=== PATIENT | female | born 1995 | race Hispanic/Latino ===

== ENCOUNTER 2018-01-25 11:52 | Outpatient (CLI) | payer BC ==
--- NOTE | 2018-01-25 12:18 | RAD ---
3 VIEWS RIGHT FOOT: Date: 01/25/18 INDICATION: Right foot pain. COMPARISON: None. FINDINGS: No definite acute fracture or subluxation is evident. Lisfranc alignment is preserved. There is heale d instrumented distal fibular fracture. IMPRESSION: No definite acute osseous abnormality. POS: [facility]
== END 2018-01-25 11:53 | disposition home or self-care (01) ==
LOC: BICRAD 11:52
PROVIDERS: ATTEND Family Medicine
DX: M79.671 Pain in right foot (principal)

== ENCOUNTER 2019-08-20 00:48 | Inpatient (IN) | payer BC, OTHER ==
[2019-08-20] MEDS ORDERED: Ondansetron ODT 4 MG TAB ONE (01:20)
[2019-08-20 02:09] LABS: #Lymphocytes 1.2 thou/uL (1.20-3.40); #Monocytes 0.3 thou/uL (0.11-0.59); #Neutrophils 13.7 thou/uL (1.40-6.50); %Basophils 0.1 % (0.0-1.0); %Lymphocytes 7.9 % (21.0-51.0); %Monocytes 1.9 % (0.0-10.0); Hemoglobin 13.2 g/dL (12.0-16.0); Mean Corpuscular Hemoglobin 27.7 pg (27.0-31.0); Mean Platelet Volume 9.5 fL (7.4-10.4); Platelet Count 220 thou/uL (130-400); Red Blood Cell (RBC) Count 4.77 mill/uL (4.20-5.40); White Blood Cell (WBC) Count 15.2 thou/uL (4.8-10.8)
[2019-08-20 02:14] LABS: BHCG - Serum Negative (NEGATIVE); Pregs Control Background? CLEAR/WHITE (CLR/WHITE); Pregs Control Bar Appear? YES (CONTROL BAR)
[2019-08-20 02:29] LABS: ALT (SGPT) 21 U/L (8-55); AST (SGOT) 20 U/L (5-34); Albumin 4.4 g/dL (3.5-5.0); Alkaline Phosphatase 97 U/L (40-110); Anion Gap 14 mmol/L (10-20); BUN (Urea Nitrogen) 8 mg/dL (7.0-18.7); Bilirubin, Total 0.2 mg/dL (0.2-1.2); Calc. Creatinine Clearance 0 mL/min (70-130); Calcium 9.1 mg/dL (7.8-10.44); Carbon Dioxide 21 mmol/L (22-29); Chloride 107 mmol/L (98-107); Estimated GFR-MDRD Greater than 90; Globulin 3.5 g/dL (2.4-3.5); Glucose 133 mg/dL (70-105); Lipase 8 U/L (8-78); Potassium 3.6 mmol/L (3.5-5.1); Protein, Total 7.9 g/dL (6.0-8.3); Sodium 138 mmol/L (136-145)
[2019-08-20 02:46] LABS: Bacteria/HPF None Seen HPF (None Seen); Bilirubin Negative (Negative); Blood, Urine 3+ (Negative); Clarity Extra Turbid (Clear); Glucose, Urine (Dipstick) Normal (Negative); Leukocyte Negative Leu/uL (Negative); Mucous/LPF 2+ LPF (<2+); Nitrite Negative (Negative); Protein, Urine (Dipstick) 70 mg/dL (Neg-Trace); RBC/HPF Greater than 50 HPF (0-3); Urobilinogen Normal mg/dL (Less than 2); WBC/HPF 21-50 HPF (0-3)
[2019-08-20] MEDS ORDERED: Morphine 4 MG/ML VIAL ONE (03:23)
[2019-08-20] MEDS ORDERED: Ondansetron PF 4 MG/2 ML Vial ONE (03:23)
[2019-08-20] MEDS ORDERED: Piperacillin/Tazobactam 3.375 GM VIAL ONE (04:08)
[2019-08-20 05:53] VITALS: BMI 32.9
[2019-08-20] MEDS ORDERED: Morphine 4 MG/ML VIAL SLOW IVP PRN (05:54)
[2019-08-20] MEDS: Morphine 2 MG/ML SYRINGE SLOW IVP PRN ×2 (06:12→09:22)
[2019-08-20] MEDS: Dextrose 5 % And 0.9 % NaCl 1,000 ML IV SCH ×2 (06:12→15:02)
--- NOTE | 2019-08-20 08:09 | CT ---
PRELIMINARY REPORT/[facility]/EMERGENCY AFTER HOURS PROCEDURE This report was discussed with MATTHEW Villagran by Carla Lu on Aug 20, 2019 03:49:00 CDT. Addendum electronically signed by Carla Lu on August 20, 2019 3:50:07 AM CDT EXAM: CT Abdomen and Pelvis with Intravenous Contrast CLINICAL HISTORY: PT PRESENTS TO ER WITH COMPLAINT OF ABD PAIN, VOMITING AND POSITIVE FOR COVID TECHNIQUE: Axial computed tomography images of the abdomen and pelvis with intravenous contrast. CONTRAST: With; ISOVUE 370, 090 ML COMPARISON: None provided. FINDINGS: LUNG BASES: No basilar airspace consolidation or pleural effusion. 8 mm groundglass nodule at the right lung bas e which is nonspecific. LIVER: Unremarkable. GALLBLADDER AND BILE DUCTS: Unremarkable. No calcified stone. No ductal dilation. PANCREAS: Unremarkable. SPLEEN: Unremarkable. ADRENAL GLANDS: Unremarkable. KIDNEYS, URETERS, AND BLADDER: Unremarkable. No hydronephrosis or nephrolithiasis. No ureteral or bladder calculi. STOMACH AND BOWEL: The colon is diffusely underdistended. No bowel obstruction. APPENDIX: The appendix is fluid-filled and diffusely dilated measuring up to 1.4 cm. There is a focus of gas at the base of the appendix. The distal appendix is mildly heterogeneous with internal hyperdensity. There are no significant periappendiceal inflammatory changes. PERITONEUM: No free fluid. No free air. LYMPH NODES: No lymphadenopathy. REPRODUCTIVE: Unremarkable as visualized. VASCULATURE: No aortic aneurysm. BONES: No fracture or suspicious osseous abnormality. ABDOMINAL WALL AND SOFT TISSUES: Unremarkable. IMPRESSION: Fluid-filled and diffusely dilated appendix measuring up to 1.4 cm. No significant periappendiceal i nflammatory changes. Findings are indeterminate and may represent early acute appendicitis versus a mucocele. 8 mm groundglass nodule at the right lung base which is nonspecific. The visualized lung bases are o therwise clear. ELECTRONICALLY SIGNED BY: Anahi Zuniga MD Aug 20, 2019 3:45:55 AM CDT This report is intended for review by the ordering physician only, in accordance of law. If you recei ve this report in error, please call [facility] at [phone]. FINAL REPORT EMERGENCY AFTER HOURS CT ABDOMEN AND PELVIS WITH IV CONTRAST: HISTORY: Abdominal pain, vomiting, and positive COVID. IMPRESSION: 1. Approximately 8 mm groundglass appearing pulmonary nodule lateral right lung base. Follow-up CT th orax in 3 months is recommended. 2. Dilated fluid-filled appendix measuring 14 mm in diameter. No significant adjacent periappendiceal inflammatory changes are identified; however, findings are worrisome for early acute appendicitis versus mucocele. 3. No free fluid, fluid collection, or lymphadenopathy is seen in the abdomen or pelvis. 4. Findings are in agreement with preliminary report by [facility]. Transcribed Date/Time: 08/20/2019 8:35 AM
[2019-08-20] MEDS ORDERED: Lidocaine 1% w/Epinephrine 1:100K 20 ML VIAL ONE (10:01)
[2019-08-20] MEDS ORDERED: Bupivacaine 0.25% HCL 30 ML VIAL ONE (10:01)
[2019-08-20] MEDS ORDERED: Rocuronium Bromide 10 MG/ML (10ML VIAL) ONE (10:38)
[2019-08-20] MEDS ORDERED: Lidocaine 1% PF 5 ML VIAL ONE ×2 (10:38)
[2019-08-20] MEDS ORDERED: Dexamethasone 20 MG/5 ML VIAL ONE (10:38)
[2019-08-20] MEDS ORDERED: Succinylcholine Chloride 20 MG/ML 10 ml SYRINGE FS ONE (10:38)
[2019-08-20] MEDS ORDERED: Glycopyrrolate 0.2 MG/ML 5 ML SYRINGE ONE (10:38)
[2019-08-20] MEDS ORDERED: PROPOFOL 200 MG/20 ML VIAL ONE (10:38)
[2019-08-20] MEDS ORDERED: PHENYLEPHRINE-NS 100 MCG/ML 10 ML SYRINGE ONE (10:38)
[2019-08-20] MEDS ORDERED: Midazolam HCl 2 mg/2 ml Vial ONE (10:42)
[2019-08-20] MEDS ORDERED: Fentanyl 100 MCG/2 ML VIAL ONE ×2 (10:42→13:19)
[2019-08-20] MEDS ORDERED: Iopamidol-370 76% 500 ML 1 ML ONE (11:35)
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
[2019-08-20] MEDS ORDERED: Ketorolac Tromethamine 30 MG/ML VIAL IVP PRN (12:36)
[2019-08-20] MEDS ORDERED: Meperidine HCl/PF 25 MG/ML VIAL SLOW IVP PRN (12:36)
[2019-08-20] MEDS ORDERED: Promethazine HCl 25 MG/ML VIAL IM PRN (12:36)
[2019-08-20] MEDS ORDERED: Morphine Sulfate 2 MG/ML SYRINGE SLOW IVP PRN (12:36)
[2019-08-20] MEDS ORDERED: PACU-Morphine 4MG/ML VIAL SLOW IVP PRN (12:36)
[2019-08-20] MEDS ORDERED: Promethazine HCl 25 MG/ML VIAL SLOW IVP PRN (12:36)
[2019-08-20] MEDS ORDERED: Ondansetron HCl/PF 4 MG/2 ML Vial IVP PRN (12:36)
[2019-08-20] MEDS ORDERED: HYDROmorphone 2 MG/ML VIAL SLOW IVP PRN (12:36)
[2019-08-20 14:20] VITALS: BP 102/57; TEMP 99.7
[2019-08-20] MEDS ORDERED: Ibuprofen 600 MG TAB PO PRN (14:39)
[2019-08-20] MEDS ORDERED: traMADol HCl 50 MG TAB PO PRN ×2 (14:40→14:41)
[2019-08-20] MEDS ORDERED: Acetaminophen 500 MG TAB PO SCH (18:00)
--- NOTE | 2019-08-20 19:19 | OP ---
DATE OF PROCEDURE: 08/20/2019 PREOPERATIVE DIAGNOSIS: Acute appendicitis. POSTOPERATIVE DIAGNOSIS: Acute appendicitis. PROCEDURE PERFORMED: Laparoscopic appendectomy. ANESTHESIA: General endotracheal. ESTIMATED BLOOD LOSS: 5 mL. FLUIDS GIVEN: 700 mL of crystalloids. COUNTS: Sponge and instrument counts were verified as correct x2. COMPLICATIONS: None apparent at the time of operation. INDICATIONS FOR OPERATION: This is a 24-year-old woman, who presented with abdominal pain of 24-hour duration. Clinical and radiographic examinations were consistent with acute appendicitis, for which the patient was brought to the operating room for appendectomy. She was recently diagnosed with COVID-19. Findings are consistent with markedly dilated inflamed appendix. No evidence of perforation. Operation was done in a negative-pressure room. DESCRIPTION OF PROCEDURE: Informed consent was obtained from the patient and was brought to the operating room and placed in supine position. Following general anesthesia, abdomen was sterilely prepped and draped in usual fashion. Skin below the umbilicus was infiltrated with 0.25% Marcaine with epinephrine. A small curvilinear infraumbilical incision was made using 11 scalpel. Umbilical stalk was grasped with Carlie and elevated. Veress needle was inserted through the incision and placed in the peritoneal cavity, through which the abdomen was insufflated with 3 L of CO2 gas. Intraabdominal pressure was noted at 2 mmHg. Following abdominal insufflation, Veress needle was removed and a 5 mm trocar introduced using a Visiport under laparoscopy. Laparoscopy confirmed proper placement of the port, no injuries to underlying structures. Additional laparoscopy reveals the right lower quadrant partially obscured by omental adhesions. Under direct vision, two 5 mm suprapubic and left lower quadrant ports were placed after the overlying skin was infiltrated with 0.25% Marcaine with epinephrine, and appropriate incision was made. The patient was placed in a Trendelenburg position, rotated to her left. I introduced a Prestige grasper through the left lower quadrant port using this to bluntly take down omental adhesions to expose distended inflamed appendix with the tip in the pelvis. I introduced the Endo Donis forceps through the suprapubic port site grasping the appendix, which was elevated. The mesoappendix was sterilely divided down to the base using LigaSure device with good hemostasis. Appendix itself was divided at the appendicocecal junction between Endoloop. It was then delivered off the abdominal cavity using an EndoCatch. Operative site was inspected for good hemostasis. The appendiceal stump remained intact and in place. The distal ileum was run from the ileocecal junction down to proximal 2 feet. No Meckel diverticulum noted. Finding no other pathology, laparoscopy was terminated. The abdomen was desufflated, and all sponges and instruments were removed and accounted for. Skin incisions were closed using 4-0 Monocryl suture in subcuticular fashion. Dermabond was applied over incisional closure. The patient tolerated the operation without any apparent complication and was returned to the recovery room in a satisfactory condition. Job ID: [id number]
--- NOTE | 2019-08-22 10:09 | PQF ---
[facility] [id number] [facility] [id number] CLINICAL DOCUMENTATION CLARIFICATION FORM: POST DISCHARGE Addendum to original discharge summary date: ____ Late entry note date: __ DATE: 08/22/2019 ATTN:Gavin Mattson Please exercise your independent, professional judgment in responding to the clarification form. Clinical indicators are provided on the bottom of this form for your review COVID 19 Clarification and Manifestations: Please check appropriate box(es): A.COVID 19 virus diagnosis Validation: [ x ] COVID-19 is ruled in (if so, please provide the evidence used to support this diagnosis) [ ] COVID-19 has been ruled out [ ] Other explanation of clinical findings [ ] Test Results Pending [ ] Unable to determine In addition, please specify: Present on Admission (POA): [ x ] Yes [ ] No [ ] Unable to determine For continuity of documentation, please document condition throughout progress notes and discharge summary. Thank You. Clinical Indicators - Signs / Symptoms / Labs with Results and Location in Medical Record ED Notes 08/19 "patient tested positive for COVID 5 days ago" 08/19 "5 days ago the patient was diagnosed with Covid-19" 08/19 "sore throat and cough" 08/19 "today she denies cough and dyspnea" Risk Factors with Results and Location in Medical Record Acute appendicitis- 08/19 Treatments with Results and Location in Medical Record Jose [id number] IV-MAY [birth year] IVF-MAY [birth year] (This form is maintained as a part of the permanent medical record) 2014 [employer] All Rights Reserved [email or web address]
== END 2019-08-20 19:20 | disposition home or self-care (01) | DRG 341 ==
LOC: ERS 00:48 → 2SW 04:14
PROVIDERS: ADMIT Surgery; ATTEND Surgery
PROC: 0DTJ4ZZ Resection of Appendix, Percutaneous Endoscopic Approach (ICD-10-PCS; principal; 2019-08-20)
DX: K35.80 Unspecified acute appendicitis (principal); U07.1 COVID-19; E66.9 Obesity, unspecified; Z68.32 Body mass index [BMI] 32.0-32.9, adult
CPT/HCPCS: 36415; 74177; 80053; 81003; 81015; 83690; 84703; 85025; 87077; 87086; 88304; 96365; 96375; J0694; J1100; J2001; J2250; J2270; J2405; J2543; J2704; J3010; Q0162; Q9967; S0020